=== PATIENT | male | born 1955 | race Caucasian/White ===

== ENCOUNTER 2017-01-12 13:13 | Inpatient (IN) | payer OTHER ==
[~2017-01-12] VITALS: Ht 177.8 cm; Wt 103.2 kg
--- NOTE | ~2017-01-12 | HP ---
PATIENT'S NAME: QUINN REINA [facility] AGE: 61 Y [address] [place] [facility] [place], [place] [address] [place] [facility] [place]: 01/12/2017 History & Physical DISCHARGE DATE: FAMILY PHYSICIAN: Aung Comer MD ATTENDING PHYSICIAN: [place] Hansen DATE OF SERVICE: CHIEF COMPLAINT: Abdominal pain. For history of present illness, past medical history, social history, exam, etc., I have gone through VISHNU Sprnig, note and agree with that evaluation. PLAN: I will go ahead and keep him on clear liquid diet for now. He actually was eating a deli cheeseburger and fries when I walked in the room and I had strongly advised against this. I gave him some morphine for pain as well as some Sherwood. I gave him some IV fluids at least 2 L, put him on Zosyn 3.375 g IV q.6 hours. I reviewed the case with Dr. Ibarra who has personally reviewed the CT scan. We do not feel like there is a fistula present. This is a small microperforation that is contained without evidence of abscess formation at this point. We will see what he does over the next couple of days and if he continues to improve, can transition him to outpatient antibiotics. He will need a colonoscopy though at some point, and further surgical followup down the road. He voiced understanding of that plan as did his . UNIQUE ABBOTT MD TAB/modl /[id number] D: [id number] T: [id number] HISTORY & PHYSICAL
--- NOTE | ~2017-01-12 | HP ---
PATIENT'S NAME: QUINN REINA [facility] AGE: 61 Y [address] ROOM: [address] [place] [id number] [place]: [facility] [place] ADMIT DATE: 01/12/2017 History & Physical DISCHARGE DATE: FAMILY PHYSICIAN: Aung Comer MD ATTENDING PHYSICIAN: Argentina Hansen DATE OF SERVICE: CHIEF COMPLAINT: Abdominal pain. REVIEW OF RECORD: Denis is a 61-year-old gentleman who yesterday started feeling ill. He started having periumbilical pain, but did kind of migrated down to the lower abdomen slightly to the right of the midline. He had some fevers, but he has been popping ibuprofen. He has had some nausea and no vomiting. He has had flatus and stool. He has not had any diarrhea. He has no known history of inflammatory bowel disease. He has had a colonoscopy 4 years ago. He had polyps, but benign, and is due for another colonoscopy within the year. He had known diverticulosis. His white count was normal at [facility], but Argentina sent him over for a CT scan due to his abdomen being very tender to make sure he does not have appendicitis. I reviewed the CT scan with Dr. Tsai, radiologist, that oral contrast had reached the rectum and look like in the sigmoid loop there is a thickened area of some mild periinflammatory changes of the sigmoid and we see some diverticulum and there were some couple of free air bubbles outside the sigmoid colon underneath the small bowel loop, which I think is walled off. There is one air bubble by the liver. There was no evidence of abscess. The small bowel looks absolutely normal other than being on top of the sigmoid colon. There is no thickening of the terminal ileum, there is no obstruction, there is no evidence of a contrast extravasation, or any transversing between the small bowel and the rectum. No evidence of rectal mass or rectal obstruction. The patient is to be admitted to the hospital per Dr. Chan. PAST MEDICAL HISTORY: Illnesses: 1. Mild obesity. 2. Hypothyroidism. 3. Depression. Operations: 1. Right clavicle ORIF. 2. Bilateral carpal tunnel release. 3. Bilateral ulnar nerve transposition. 4. Colonoscopy. PATIENT'S NAME: QUINN REINA [facility] AGE: 61 Y [address] ROOM: [address] [place], [place] [address] LOCATION: [facility] [place] ADMIT DATE: 01/12/2017 History & Physical DISCHARGE DATE: FAMILY PHYSICIAN: Aung Comer MD ATTENDING PHYSICIAN: Argentina Hansen MEDICATIONS: 1. Ibuprofen. 2. Synthroid. 3. Antidepressant name to be determined. ALLERGIES: NONE. SOCIAL HISTORY: , has 3 kids, is a gay by [place], [place]. He does not smoke or chew and occasional alcohol use. FAMILY HISTORY: Mom of unknown type of malignancy in the elderly. There is otherwise no diabetes or heart disease in the family. REVIEW OF SYSTEMS: The patient denies any documented high fevers, but he has felt warm and flushed. He says about couple months of ago, he had similar pain, he thought was a UTI, and he finished a course of antibiotics that he had previously not, and did not seek medical evaluation. He has never been hospitalized before for diverticulitis. He denies any change in his thyroid condition. Denies any shortness of breath or productive cough. Denies any chest pain suggestive of angina. Denies any epigastric abdominal pain. No dysuria, hematuria, or pneumaturia. No swollen joints or peripheral edema. PHYSICAL EXAMINATION: VITAL SIGNS: His vitals are pending. HEENT: Head is normocephalic. His sclerae are nonicteric. Mucous membranes are dry. NECK: Supple. ABDOMEN: Obese, tender, across the periumbilical region into the pubic location. No palpable mass. No evidence of hernias. EXTREMITIES: He has no peripheral edema at the ankle. IMPRESSION: I suspect the gentleman's had recurrent bouts of sigmoid diverticulitis with known diverticulum and has had a microperforation and the small bowel was laid on top of the sigmoid colon that walled off. I do not think there is any evidence of fistula. The small bowel itself looks too good to suggest inflammatory bowel disease. The patient had a colonoscopy 4 years ago. He had polyps. I recommend that he be admitted to the hospital by primary care service, started IV antibiotics, and once the clinical pain is under control, he can be discharged for outpatient course. I would then recommend that he have follow up colonoscopy, which he will need; and if otherwise negative, he PATIENT'S NAME: [facility] AGE: 61 Y [address] [place] [facility] [place], [place] [address] LOCATION: [facility] [place] ADMIT DATE: 01/12/2017 History & Physical DISCHARGE DATE: FAMILY PHYSICIAN: Aung Comer MD ATTENDING PHYSICIAN: Argentina Hansen can return to clinic to discuss undergoing observation versus diet modification versus surgical intervention for sigmoid diverticulitis. MARIANN AGUILERA MD WTPaty/modl /[id number] D: [id number] T: [id number] HISTORY & PHYSICAL
--- NOTE | ~2017-01-12 | DS ---
PATIENT'S NAME: QUINN REINA [facility] AGE: 61 Y [address] ROOM: [address] [address] [place] [facility] [place] DATE: 01/12/2017 Discharge Summary DISCHARGE DATE: 01/14/2017 FAMILY PHYSICIAN: Leatha Comer MD ATTENDING PHYSICIAN: Argentina Hansen CORRECTED PATIENT ACCOUNT INFORMATION 02/18/2017 AO BRIEF HISTORY: This is a white male who presented with abdominal pain. Subsequently, he was found to have diverticulitis with microperforation. He was placed on hospital consultation, obtained with General Surgery. They recommend IV antibiotics and bowel rest. The patient did extremely well and subsequently was able to be discharged to home. DISCHARGE MEDICATIONS: He will be discharged to home on his current medications of: 1. Fluoxetine. 2. Levothyroxine. He will also be sent home on Augmentin 875 mg daily for 14 days. He will follow up in the office with General Surgery for planned colonoscopy approximately 6 weeks post treatment. LEATHA COMER MD TLP/modl /[id number] CORRECTED PATIENT ACCOUNT INFORMATION 02/18/2017 AO d: 02/10/17 1134 t: 02/22/17 1819, DISCHARGE SUMMARY
[~2017-01-12 13:13] MED LIST: COLACE100 MG PO; LEVOTHROID (SY50 MCG; LEVOTHROID (SY88 MCG PO; PERCOCET 5-3251 EACH PO
[2017-01-12] MEDS ORDERED: MINOCYCLINE HC100 MG PO (18:08)
[2017-01-12] MEDS ORDERED: FLUOXETINE HCL40 MG PO (18:08)
[2017-01-12] MEDS ORDERED: ADVIL200 MG PO (18:10)
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
--- NOTE | 2017-01-13 04:36 | NUR ---
Patient alert and oriented x3, is NPO for ruptured/perforated diverticuli, has IV fluids running at 125, next antibiotic will be hung at 0500, taking Narco for pain last given at 0200, up ad malcolm in room
[2017-01-13 05:43] LABS: BASOPHIL % 0.1 %; HEMOGLOBIN 14.6 g/dL (12.0-17.0); IMMATURE GRANULOCYTE % 0.4 %; LYMPHOCYTE # 1.3 K/uL (0.8-4.0); LYMPHOCYTE % 15.8 %; MCH 31.8 pg (27.0-34.0); MCV 93.7 fl (83.0-98.0); MONOCYTE # 0.9 K/uL (0.0-1.0); MONOCYTE % 11.1 %; NEUTROPHIL # (ANC) 5.8 K/uL (1.4-9.0); NEUTROPHIL % 72.6 %; NRBC % 0 /100WBC (0-0.00); PLATELET COUNT 105 K/uL (150-450); RBC 4.59 M/uL (4.00-6.00); RDW-CV 13.7 % (11.9-14.6)
[2017-01-13 06:01] LABS: ALBUMIN 3.1 gm/dL (3.5-5.0); ALK PHOS 59 IU/L (33-138); ALT 36 IU/L (12-78); ANION GAP 11.3 (10.0-19.0); AST 16 IU/L (10-40); BLOOD UREA NITROGEN 11 mg/dL (6-24); CHLORIDE 108 mMol/L (96-110); CO2 27 mMol/L (22-32); ESTIMATED GFR (MDRD EQUATION) > 60; POTASSIUM 4.3 mMol/L (3.7-5.1); SODIUM 142 mMol/L (135-145); TOTAL BILIRUBIN 0.9 mg/dL (0.0-1.5); TOTAL PROTEIN 6.4 g/dL (6.0-8.4)
--- NOTE | 2017-01-13 11:20 | NUR ---
Introduced self/role to patient, lives in [place] with his Patti. Patient couldn't think of any discharge barriers. Denied any need for DME. Added my name to his marker board.
--- NOTE | 2017-01-13 17:59 | NUR ---
AAOx3. Coopertive with cares. Up independently in room and hallways. Tolerating clear liquid diet well. IV s/l'd w/intermittent Abx. BM today. Voiding well. Gave Tol[place]on for c/o abdominal pain x2 today with relief.
--- NOTE | 2017-01-14 05:27 | NUR ---
Significant Event: Pt alert and oriented. Cooperative with cares. Has rested off and on throughout the night. Up ad malcolm in room and hallways. IV saline locked. Continues on intermittent IV antibiotics. Tenstrike given x1 with relief noted. Tolerating clear liquid diet without nausea. Bowel sounds active. Pt passing flatus, had 3 loose bowel movements per pt report. Will continue to monitor. Follow up:
[2017-01-14 05:46] LABS: BASOPHIL % 0.3 %; HEMATOCRIT 43.3 % (37.0-53.0); HEMOGLOBIN 14.7 g/dL (12.0-17.0); IMMATURE GRANULOCYTE % 0.3 %; LYMPHOCYTE # 1.2 K/uL (0.8-4.0); MCH 31.7 pg (27.0-34.0); MCHC 33.9 gm/dL (32.0-36.5); MCV 93.5 fl (83.0-98.0); MONOCYTE # 0.7 K/uL (0.0-1.0); MONOCYTE % 9.3 %; MPV 9.4 fl (9.4-12.4); NEUTROPHIL # (ANC) 5.1 K/uL (1.4-9.0); NEUTROPHIL % 73.1 %; NRBC % 0 /100WBC (0-0.00); PLATELET COUNT 113 K/uL (150-450); RBC 4.63 M/uL (4.00-6.00); RDW-CV 13.4 % (11.9-14.6)
--- NOTE | 2017-01-14 17:30 | NUR ---
DISCHARGE: Pt. and were explained discharge instructions, educated on abdominal pain. Verbalized understanding, no questions or concerns. IV removed by primary nurse. Left with all belongings and scripts. Souleymane called in additional scripts to [facility] and patient is aware. Walked to front door by virtual nurse and driven home by .
== END 2017-01-14 17:29 | disposition disaster alternative care site (69) | DRG 392 ==
LOC: GRAD 13:13 → GMSU 16:37
PROVIDERS: Family Medicine; ADMIT Family Medicine
DX: K57.20 Diverticulitis of large intestine with perforation and abscess without bleeding (principal); I10 Essential (primary) hypertension; E66.9 Obesity, unspecified; E03.9 Hypothyroidism, unspecified; F32.9 Major depressive disorder, single episode, unspecified
CPT/HCPCS: J2543; J7030; J7050